=== PATIENT | female | born 1955 | race Two or more races ===

== ENCOUNTER 2023-06-05 06:50 | Day surgery (SDC) | payer OTHER ==
[~2023-06-05] VITALS: Ht 157.5 cm; Wt 81.6 kg
[~2023-06-05 06:50] MED LIST: BACLOFEN20 MG PO; GRALISE600 MG PO; LIPITOR40 MG PO; SYNTHROID50 MCG PO
[2023-06-05] MEDS ORDERED: POVIDONE-IODINE 118 ML BOTT TOP ONE (12:09)
== END 2023-06-05 18:05 | disposition home or self-care (01) ==
LOC: CIR.AMB 06:50
PROVIDERS: ATTEND Obstetrics & Gynecology Gynecology
DX: N95.0 Postmenopausal bleeding (principal)